=== PATIENT | female | born 1995 | race African-American/Black ===

== ENCOUNTER 2021-10-06 12:47 | Emergency (ER) | payer OTHER ==
[~2021-10-06] VITALS: Ht 162.6 cm; Wt 59.0 kg
[2021-10-06 13:35] VITALS: BP 124/61
[2021-10-06 14:15] LABS: Urine Bacteria FEW /hpf (None Seen); Urine Blood Negative /uL (Negative); Urine Specific Gravity 1.001 (1.001-1.035); Urine WBC <1 /hpf (0 - 5)
[2021-10-06 14:17] LABS: Alcohol, Urine < 3.0 mg/dL (0-10); Amphetamine Screen, Urine NEGATIVE (NEGATIVE); Barbiturate Scree,Urine NEGATIVE (NEGATIVE); Benzodiazephine Screen, Urine NEGATIVE (NEGATIVE); Cannabinoid Screen, Urine NEGATIVE (NEGATIVE); Cocaine Screen, Urine NEGATIVE (NEGATIVE); Opiate Scree,Urine NEGATIVE (NEGATIVE); Phencyclidine Screen, Urine NEGATIVE (NEGATIVE)
[2021-10-06] MEDS ORDERED: IBUP800T27 PO (14:37)
[2021-10-06] MEDS ORDERED: AMOX-277 PO (14:37)
[2021-10-06] MEDS ORDERED: CEPH-509 PO (14:56)
[2021-10-07] MEDS ORDERED: HYDR1TAB97 PO (17:15)
== END 2021-10-06 15:07 | disposition home or self-care (01) ==
LOC: ER 12:47
DX: H66.91 Otitis media, unspecified, right ear (principal); N83.201 Unspecified ovarian cyst, right side; D25.9 Leiomyoma of uterus, unspecified
CPT/HCPCS: 76830; 76856; 80307; 81001; 81025

== ENCOUNTER 2021-10-07 12:34 | Emergency (ER) | payer OTHER ==
[~2021-10-07] VITALS: Ht 162.6 cm; Wt 0.5 kg
[~2021-10-07 12:34] MED LIST: CEPH-509 PO; IBUP800T27 PO
[2021-10-07] MEDS ORDERED: ONDANSETRON HCL 4 MG/2 ML VIAL IV ONE (13:15)
[2021-10-07] MEDS ORDERED: SODIUM CHLORIDE 0.9% 1,000 ML IV ONE ×2 (13:15→17:30)
[2021-10-07] MEDS ORDERED: HYDROcodone-ACET 5/325MG TAB PO ONE (13:45)
[2021-10-07 13:50] LABS: Mean Corpuscular Volume 53.1 fL (80.0-100.0)
[2021-10-07 13:52] LABS: Hematocrit 27.3 % (36.0-46.0); Hemoglobin 7.9 g/dL (12.2-16.2); Mean Corpuscular Hemoglobin 15.4 pg (28.0-32.0); Red Blood Cells 5.14 10^6/uL (4.0-5.20); White Blood Cell 6.1 10^3/uL (4.4-10.8)
[2021-10-07 13:55] LABS: Red Cell Distribution Width 21.7 % (11.8-14.3)
[2021-10-07 13:56] LABS: Band Neutrophils % (manual) 0; Basophils % (manual) 0 (0.0-2.0); Blast Cells 0; Eosinophils % (manual) 0 (0-7); Myelocytes % 0; Promyelocytes % 0; Reactive Lymphocytes 0
[2021-10-07 14:07] LABS: Urine Bacteria FEW /hpf (None Seen); Urine Blood Negative /uL (Negative); Urine Specific Gravity 1.003 (1.001-1.035); Urine WBC <1 /hpf (0 - 5)
[2021-10-07 14:12] LABS: Lymphocytes % (manual) 38 (10.0-50.0); Metamyelocytes % 1; Monocytes % (manual) 25 (0-12)
[2021-10-07 14:27] LABS: Albumin 3.5 g/dL (3.4-5.0); Calcium 9.3 mg/dL (8.5-10.1); Potassium 3.4 mmol/L (3.5-5.1)
[2021-10-07 14:41] LABS: BUN/Creatinine Ratio 9.9; Bilirubin, Total 0.3 mg/dL (0.2-1.0); Total Protein 8.4 g/dL (6.4-8.2)
[2021-10-07] MEDS ORDERED: HYDR1TAB97 PO (17:15)
[2021-10-07 19:04] LABS: Hematocrit 25.7 % (36.0-46.0); Hemoglobin 7.3 g/dL (12.2-16.2)
[2021-10-07 19:58] VITALS: BP 109/65
== END 2021-10-07 19:59 | disposition home or self-care (01) ==
LOC: ER 12:34
DX: D64.9 Anemia, unspecified (principal); D25.9 Leiomyoma of uterus, unspecified; N83.201 Unspecified ovarian cyst, right side; Z20.822 Contact with and (suspected) exposure to COVID-19
CPT/HCPCS: 36415; 80053; 81001; 83605; 83690; 84702; 85007; 85014; 85018; 85027; 87426; 96361; 96374; 99285; J2405; J7030